=== PATIENT | male | born 1995 | race Caucasian/White ===

== ENCOUNTER 2018-03-18 09:55 | Outpatient (CLI) | payer OTHER ==
[2018-03-18 13:24] LABS: BASOPHILS % (AUTO) 0.5 %; EOSINOPHILS # (AUTO) 0.2 10^3/uL (0.0-0.7); EOSINOPHILS % (AUTO) 3.4 %; HGB - HEMOGLOBIN 15.8 g/dL (14.0-18.0); LYMPHOCYTES # (AUTO) 1.9 10^3/uL (1.5-3.5); LYMPHOCYTES % (AUTO) 37.8 %; MEAN CORPUSCULAR HEMOGLOBIN 33.6 pg (27.0-31.0); MEAN CORPUSCULAR HGB CONC 35.6 g/dL (32.0-36.0); MEAN CORPUSCULAR VOLUME 94.5 fL (80.0-94.0); MEAN PLATELET VOLUME 8.9 fL (7.4-11.4); MONOCYTES # (AUTO) 0.5 10^3/uL (0.0-1.0); MONOCYTES % (AUTO) 10.5 %; NEUTROPHILS # (AUTO) 2.4 10^3/uL (1.5-6.6); NEUTROPHILS % (AUTO) 47.8 %; PLT - PLATELET COUNT 214 10^3/uL (130-450); RED CELL DISTRIBUTION WIDTH 12.4 % (12.0-15.0); WHITE BLOOD COUNT 5.1 x10^3/uL (4.8-10.8)
[2018-03-18 13:41] LABS: HEMOGLOBIN A1C 0.46 g/dL; HEMOGLOBIN A1C % 4.6 % (4.6-6.2)
[2018-03-18 13:47] LABS: ALBUMIN 4.7 g/dL (3.2-5.5); ALBUMIN/GLOBULIN RATIO 1.7 (1.0-2.2); ALKALINE PHOSPHATASE 52 IU/L (42-121); ALT ALANINE AMINOTRANSFERASE 12 IU/L (10-60); AST ASPARTATE AMINOTRANSFERASE 16 IU/L (10-42); BILIRUBIN,TOTAL 2.2 mg/dL (0.2-1.0); BUN - BLOOD UREA NITROGEN 13 mg/dL (6-20); CALCIUM 9.5 mg/dL (8.5-10.3); CARBON DIOXIDE - CO2 26 mmol/L (21-32); CHLORIDE 105 mmol/L (101-111); CHOL/HDL RATIO 2.9 (<5.0); CHOLESTEROL 154 mg/dL; CREATININE 0.9 mg/dL (0.6-1.2); GFR - MDRD 107 (>89); GLUCOSE 85 mg/dL (70-100); HDL CHOLESTEROL 53 mg/dL; LDL CHOLESTEROL,CALCULATED 92 mg/dL; LDL/HDL RATIO 1.7 (<3.6); SODIUM 139 mmol/L (135-145); TOTAL PROTEIN 7.4 g/dL (6.7-8.2); VLDL CHOLESTEROL 9 mg/dL
== END 2018-03-18 09:56 | disposition home or self-care (01) ==
LOC: LAB.WCP 09:55
PROVIDERS: ATTEND Family Medicine
DX: Z00.00 Encounter for general adult medical examination without abnormal findings (principal)
CPT/HCPCS: 36415; 80050; 80061; 83036; 83721

== ENCOUNTER 2020-10-19 12:23 | Emergency (ER) | payer OTHER ==
[2020-10-19 13:05] LABS: BASOPHILS % (AUTO) 0.4 %; EOSINOPHILS % (AUTO) 0.4 %; HCT - HEMATOCRIT 52.8 % (42.0-52.0); LYMPHOCYTES % (AUTO) 7.1 %; MEAN CORPUSCULAR HEMOGLOBIN 33.6 pg (27.0-31.0); MEAN CORPUSCULAR VOLUME 93.5 fL (80.0-94.0); MEAN PLATELET VOLUME 9.7 fL (7.4-11.4); MONOCYTES % (AUTO) 9.8 %; NEUTROPHILS % (AUTO) 81.9 %; PLT - PLATELET COUNT 353 10^3/uL (130-450); RED BLOOD COUNT 5.65 10^6/uL (4.70-6.10); RED CELL DISTRIBUTION WIDTH 11.8 % (12.0-15.0); WHITE BLOOD COUNT 24.2 x10^3/uL (4.8-10.8)
[2020-10-19 13:09] LABS: SLIDE REVIEW? Indicated
[2020-10-19 13:10] LABS: ABNORMAL LYMPHS % (MANUAL) 0 %
[2020-10-19 13:17] LABS: ALBUMIN/GLOBULIN RATIO 1.8 (1.0-2.2); BILIRUBIN,TOTAL 1.3 mg/dL (0.2-1.0); CALCIUM 10.4 mg/dL (8.5-10.3); CREATININE 1.2 mg/dL (0.6-1.2); POTASSIUM 3.9 mmol/L (3.5-5.0); TOTAL PROTEIN 9.4 g/dL (6.7-8.2)
[2020-10-19 13:37] LABS: BAND NEUTROPHILS % (MANUAL) 16 %; EOSINOPHILS # (MANUAL) 0.2 10^3/uL (0-0.7); LYMPHOCYTES # (MANUAL) 1.7 10^3/uL (1.5-3.5); LYMPHOCYTES % (MANUAL) 7 %; MONOCYTES # (MANUAL) 1.5 10^3/uL (0.0-1.0); NEUTROPHILS # (MANUAL) 20.8 10^3/uL (1.5-6.6); PLATELET ESTIMATE, MANUAL NORMAL (130-450,000) (NORMAL); PLATELET MORPHOLOGY NORMAL APPEARANCE (NORMAL); RBC MORPHOLOGY (MULTIPLE) NORMAL APPEARANCE (NORMAL)
[2020-10-19 13:38] LABS: DIFFERENTIAL COMMENT MANUAL DIFFERENTIAL; WBC MORPHOLOGY (MULTIPLE) NORMAL APPEARANCE (NORMAL)
[2020-10-19] MEDS ORDERED: ONDANSETRON 4 MG/2 ML VIAL IVP STA (14:10)
[2020-10-19] MEDS ORDERED: KETOROLAC 30 MG/ML VIAL IVP STA (14:10)
[2020-10-19] MEDS ORDERED: SODIUM CHLORIDE 0.9% 1,000 ML IV STA ×2 (14:10)
--- NOTE | 2020-10-19 14:11 | ED Physician Documentation ---
PD HPI ABD PAIN - Stated complaint Stated Complaint: ABD PX/NAUSEA - Chief complaint Chief Complaint: Abd Pain - History obtained from History obtained from: Patient - Additional information Additional information: 24-year-old gentleman with history of ADD but otherwise healthy with no history of abdominal surgeries had relatively sudden onset epigastric pain associated with vomiting and diarrhea this morning around 10 AM. He wonders if it might have been from eating out last night. No sick contacts or recent travel. No fevers. Review of Systems Ten Systems: 10 systems reviewed and negative Constitutional: denies: Fever, Chills Nose: denies: Rhinorrhea / runny nose, Congestion Cardiac: denies: Chest pain / pressure, Palpitations Respiratory: denies: Dyspnea, Cough PD PAST MEDICAL HISTORY - Past Medical History Psych: Depression, Anxiety, ADD/ADHD - Past Surgical History Past Surgical History: Yes HEENT: Myringotomy (tubes) - Present Medications Home Medications: Ambulatory Orders Medication Instructions Recorded Confirmed Dextroamphetamine/Amphetamine 12.5 mg PO BID 01/01/14 10/19/20 [Adderall 12.5 mg Tablet] Ondansetron Odt [Zofran] 4 mg TL Q6H PRN #10 tablet 10/19/20 - Allergies Allergies/Adverse Reactions: Allergies Allergy/AdvReac Type Severity Reaction Status Date / Time No Known Drug Allergies Allergy Verified 10/19/20 12:38 - Social History Does the pt smoke?: No Smoking Status: Never smoker Does the pt drink ETOH?: No Does the pt have substance abuse?: No - Immunizations Immunizations are current?: Yes - POLST Patient has POLST: No PD ED PE NORMAL - Vitals Vital signs reviewed: Yes - General General: Alert and oriented X 3, No acute distress - HEENT HEENT: PERRL, EOMI - Neck Neck: Supple, no meningeal sign, No bony TTP - Cardiac Cardiac: RRR, No murmur - Respiratory Respiratory: No respiratory distress, Clear bilaterally - Abdomen Abdomen: Normal bowel sounds, Soft, Non tender - Back Back: No CVA TTP, No spinal TTP - Derm Derm: Normal color, Warm and dry - Extremities Extremities: No edema, No calf tenderness / cord - Neuro Neuro: Alert and oriented X 3, Normal speech Results - Vitals Vitals: Vital Signs - 24 hr 10/19/20 12:36 Temperature 36.6 C Heart Rate 113 H Respiratory 16 Rate Blood Pressure 116/70 O2 Saturation 100 Oxygen O2 Source Room air - Labs Labs: Laboratory Tests 10/19/20 10/19/20 10/19/20 13:00 13:00 14:47 WBC 24.2 H RBC 5.65 Hgb 19.0 H Hct 52.8 H MCV 93.5 MCH 33.6 H MCHC 36.0 RDW 11.8 L Plt Count 353 MPV 9.7 Neut # (Auto) Not Reportable Lymph # (Auto) Not Reportable [place] # (Auto) Not Reportable Eos # (Auto) Not Reportable Baso # (Auto) Not Reportable Absolute Nucleated RBC Not Reportable Total Counted 100 Band Neuts % (Manual) 16 H Abnorm Lymph % (Manual) 0 Nucleated RBC % Not Reportable Neutrophils # (Manual) 20.8 H Lymphocytes # (Manual) 1.7 Monocytes # (Manual) 1.5 H Eosinophils # (Manual) 0.2 Basophils # (Manual) 0.0 Differential Comment MANUAL DIFFERENTIAL Manual Slide Review Indicated WBC Morphology NORMAL APPEARANCE Platelet Estimate NORMAL (130-450,000) Platelet Morphology NORMAL APPEARANCE RBC Morph Micro Appear NORMAL APPEARANCE Sodium 139 Potassium 3.9 Chloride 101 Carbon Dioxide 25 Anion Gap 13.0 BUN 17 Creatinine 1.2 Estimated GFR (MDRD) 75 L Glucose 138 H Calcium 10.4 H Total Bilirubin 1.3 H AST 21 ALT 20 Alkaline Phosphatase 67 Total Protein 9.4 H Albumin 6.0 H Globulin 3.4 Albumin/Globulin Ratio 1.8 Lipase 22 Urine Color DARK YELLOW Urine Clarity SL. CLOUDY Urine pH 6.0 Ur Specific [place] >=1.030 H Urine Protein 100 H Urine Glucose (UA) NEGATIVE Urine Ketones NEGATIVE Urine Occult Blood NEGATIVE Urine Nitrite NEGATIVE Urine Bilirubin MODERATE H Urine Urobilinogen 0.2 (NORMAL) Ur Leukocyte Esterase NEGATIVE Urine RBC 0-5 Urine WBC 0-3 Ur Squamous Epith Cells RARE Squamous Urine Bacteria Moderate H Urine Casts 6-10 Hyaline Casts Urine Mucus Marked Strands Ur Microscopic Review INDICATED Urine Culture Comments INDICATED PD MEDICAL DECISION MAKING - ED course ED course: Note made that he has a significant leukocytosis on labs. His history at this point and his exam being completely nontender is really not consistent with a surgical process. Will reassess after some IV fluids noting that his labs do show hemoconcentration otherwise. When this was discussed with this patient he also notes that in the past he has had unexplained leukocytoses not indicative of serious illness. He was reexamined several times and was feeling better. He remained completely nontender and passed p.o. challenge. Very close watchful waiting was advised especially in light of his leukocytosis. Departure - Departure Disposition: 01 Home, Self Care Clinical Impression: Abdominal pain Qualifiers: Abdominal location: epigastric Qualified Code(s): R10.13 - Epigastric pain Vomiting Qualifiers: Vomiting type: unspecified Vomiting Intractability: non-intractable Nausea presence: with nausea Qualified Code(s): R11.2 - Nausea with vomiting, unspecified Diarrhea Qualifiers: Diarrhea type: unspecified type Qualified Code(s): R19.7 - Diarrhea, unspecified Condition: Good Record reviewed to determine appropriate education?: Yes Instructions: ED Abdominal Pain Appendx Poss Prescriptions: Ondansetron Odt [Zofran] 4 mg TL Q6H PRN #10 tablet PRN Reason: Nausea / Vomiting Comments: If it anytime you run a fever, or if you are not better by 7 AM tomorrow please return for reevaluation, also if worse please return. Follow-up with your do ctor regardless for repeat evaluation, next available appointment. Forms: Activity restrictions
[2020-10-19 15:10] LABS: GLUCOSE, URINE (UA) NEGATIVE (NEGATIVE); KETONES,URINE (UA) NEGATIVE (NEGATIVE); LEUKOCYTE ESTERASE, URINE NEGATIVE (NEGATIVE); NITRITE,URINE NEGATIVE (NEGATIVE); OCCULT BLOOD,URINE NEGATIVE (NEGATIVE); PROTEIN,URINE 100 mg/dL (NEGATIVE); UROBILINOGEN,URINE 0.2 (NORMAL) E.U./dL (NORMAL)
[2020-10-19 15:11] LABS: CLARITY,URINE SL. CLOUDY (CLEAR)
[2020-10-19 15:17] LABS: BILIRUBIN,URINE MODERATE (NEGATIVE); ICTOTEST,URINE POSITIVE
[2020-10-19 15:24] LABS: BACTERIA,URINE Moderate /HPF (None Seen); MUCUS,URINE Marked Strands; RBC,URINE 0-5 /HPF (0-5); SQUAMOUS EPITHELIAL CELL,UR RARE Squamous (<= Few); WBC,URINE 0-3 /HPF (0-3)
[2020-10-19 15:52] VITALS: BP 102/61
== END 2020-10-19 16:27 | disposition home or self-care (01) ==
LOC: ED 12:23
DX: R10.13 Epigastric pain (principal); R11.2 Nausea with vomiting, unspecified; R19.7 Diarrhea, unspecified; D72.829 Elevated white blood cell count, unspecified
CPT/HCPCS: 36415; 80053; 81001; 81003; 83690; 85025; 87086; 96374; 96375; 99283

== ENCOUNTER 2021-10-24 08:13 | Outpatient (CLI) | payer OTHER ==
[2021-10-24 12:30] LABS: RHEUMATOID FACTOR NEGATIVE (Negative)
[2021-10-25 14:32] LABS: HEPATITIS A AB TOTAL(IMMUNITY) REACTIVE (NON-REACTIVE); HEPATITIS B CORE AB TOTAL NON-REACTIVE (NON-REACTIVE); HEPATITIS B SURFACE ANTIGEN NON-REACTIVE (NON-REACTIVE); HEPATITIS C ANTIBODY NON-REACTIVE (NON-REACTIVE)
[2021-10-25 18:51] LABS: BASOPHILS % (AUTO) 0.6 %; EOSINOPHILS # (AUTO) 0.2 10^3/uL (0.0-0.7); EOSINOPHILS % (AUTO) 2.1 %; HCT - HEMATOCRIT 49.1 % (42.0-52.0); HGB - HEMOGLOBIN 17.5 g/dL (14.0-18.0); LYMPHOCYTES % (AUTO) 27.9 %; MEAN CORPUSCULAR HEMOGLOBIN 32.6 pg (27.0-31.0); MEAN CORPUSCULAR HGB CONC 35.6 g/dL (32.0-36.0); MEAN CORPUSCULAR VOLUME 91.4 fL (80.0-94.0); MEAN PLATELET VOLUME 10.7 fL (7.4-11.4); MONOCYTES # (AUTO) 0.8 10^3/uL (0.0-1.0); MONOCYTES % (AUTO) 11.1 %; NEUTROPHILS # (AUTO) 4.2 10^3/uL (1.5-6.6); NRBC ABSOLUTE COUNT (AUTO) 0.03 x10^3/uL; NUCLEATED RED BLOOD CELLS AUTO 0.4 /100WBC; PLT - PLATELET COUNT 270 10^3/uL (130-450); RED BLOOD COUNT 5.37 10^6/uL (4.70-6.10); RED CELL DISTRIBUTION WIDTH 11.6 % (12.0-15.0); WHITE BLOOD COUNT 7.2 x10^3/uL (4.8-10.8)
[2021-10-25 19:17] LABS: ALBUMIN/GLOBULIN RATIO 1.9 (1.0-2.2); BILIRUBIN,TOTAL 1.7 mg/dL (0.2-1.0); CALCIUM 9.5 mg/dL (8.5-10.3); CREATININE 1.2 mg/dL (0.6-1.2); TOTAL PROTEIN 7.6 g/dL (6.7-8.2)
[2021-10-25 19:23] LABS: THYROID STIMULATING HORMONE 0.93 uIU/mL (0.34-5.60)
[2021-10-25 19:26] LABS: POTASSIUM 6.7 mmol/L (3.5-5.0)
[2021-10-26 14:01] LABS: ANA SCREEN NEGATIVE (NEGATIVE)
[2021-10-26 19:26] LABS: CYCLIC CITRULL PEPTIDE CCP IGG <16 UNITS
== END 2021-10-24 08:14 | disposition home or self-care (01) ==
LOC: LAB.N 08:13
PROVIDERS: ATTEND Internal Medicine
DX: R16.1 Splenomegaly, not elsewhere classified (principal); R10.12 Left upper quadrant pain; R53.83 Other fatigue
CPT/HCPCS: 36415; 80053; 82150; 83010; 83690; 84443; 85025; 85651; 86038; 86140; 86200; 86430; 86704; 86708; 86803; 87340

== ENCOUNTER 2021-10-28 08:55 | Outpatient (CLI) | payer OTHER ==
[2021-10-28 14:00] LABS: CREATININE 1.1 mg/dL (0.6-1.2)
[2021-10-28 14:05] LABS: POTASSIUM 4.2 mmol/L (3.5-5.0)
== END 2021-10-28 08:56 | disposition home or self-care (01) ==
LOC: LAB.N 08:55
PROVIDERS: ATTEND Internal Medicine
DX: E87.5 Hyperkalemia (principal); R16.1 Splenomegaly, not elsewhere classified
CPT/HCPCS: 36415; 80048; 83010; 83615

== ENCOUNTER 2021-11-14 10:33 | Outpatient (CLI) | payer OTHER ==
[2021-11-14] MEDS ORDERED: IOVERSOL 320 100 ML VIAL IVP ONE ×2 (10:58→16:07)
--- NOTE | 2021-11-14 15:15 | CT Report ---
PROCEDURE: Abdomen/Pelvis W INDICATIONS: Splenomegaly and left upper quadrant pain CONTRAST: IV CONTRAST: Optiray 320 ml: 100 PO CONTRAST: Optiray 320 ml50 TECHNIQUE: After the administration of intravenous contrast, 5 mm thick sections acquired from the diaphragms to the symphysis. 5 mm thick coronal and sagittal reformats were acquired. For radiation dose reducti on, the following was used: automated exposure control, adjustment of mA and/or kV according to isa ent size. COMPARISON: None. FINDINGS: There is a multiseptated cystic lesion in the inferior spleen measuring at least 11 x 10.5 cm maximum axial dimension and 10 cm craniocaudal. There are calcifications in the wall of the lesion. The medi al and inferior wall of the lesion demonstrates crescentic soft tissue attenuation which may represen t a solid/cellular portion, although this is not definitive. Normal CT appearance of the liver, gallbladder, pancreas, kidneys, adrenal glands. No acute enteric a bnormality. No free fluid or free air. No threshold enlarged lymph node in the abdomen or pelvis. Oss eous structures unremarkable. IMPRESSION: Multiseptated cystic mass in the spleen measuring up to 11 cm. This may simply represent a multisepta adwoa cyst, though there does appear to be a possibly solid/cellular portion in the inferior/medial wal l of the lesion. MRI could be helpful for further evaluation. Consider surgical consultation. Reviewed by: Tyrone Correa MD on 11/14/2021 3:14 PM PDT Approved by: Tyrone Correa MD on 11/14/2021 3:14 PM PDT Station ID: [id number]
[2021-11-14] MEDS ORDERED: IOVERSOL 320 50 ML VIAL PO ONE (16:07)
== END 2021-11-14 10:34 | disposition home or self-care (01) ==
LOC: DI 10:33
PROVIDERS: ATTEND Internal Medicine
DX: R16.1 Splenomegaly, not elsewhere classified (principal); D72.829 Elevated white blood cell count, unspecified
CPT/HCPCS: 74177; Q9967

== ENCOUNTER 2022-08-02 00:03 | Emergency (ER) | payer OTHER ==
[2022-08-02] MEDS ORDERED: SODIUM CHLORIDE 0.9% 1,000 ML IV STA ×2 (00:17→02:20)
[2022-08-02 00:28] LABS: BASOPHILS % (AUTO) 0.3 %; EOSINOPHILS # (AUTO) 0.1 10^3/uL (0.0-0.7); EOSINOPHILS % (AUTO) 0.8 %; HCT - HEMATOCRIT 47.8 % (42.0-52.0); HGB - HEMOGLOBIN 16.8 g/dL (14.0-18.0); LYMPHOCYTES # (AUTO) 2.8 10^3/uL (1.5-3.5); LYMPHOCYTES % (AUTO) 25.3 %; MEAN CORPUSCULAR HEMOGLOBIN 32.7 pg (27.0-31.0); MEAN CORPUSCULAR HGB CONC 35.1 g/dL (32.0-36.0); MEAN CORPUSCULAR VOLUME 93.2 fL (80.0-94.0); MEAN PLATELET VOLUME 9.5 fL (7.4-11.4); MONOCYTES # (AUTO) 0.8 10^3/uL (0.0-1.0); MONOCYTES % (AUTO) 7.5 %; NEUTROPHILS # (AUTO) 7.3 10^3/uL (1.5-6.6); NEUTROPHILS % (AUTO) 65.7 %; PLT - PLATELET COUNT 296 10^3/uL (130-450); RED BLOOD COUNT 5.13 10^6/uL (4.70-6.10); RED CELL DISTRIBUTION WIDTH 11.5 % (12.0-15.0); WHITE BLOOD COUNT 11.1 x10^3/uL (4.8-10.8)
[2022-08-02 00:39] LABS: ALBUMIN/GLOBULIN RATIO 1.6 (1.0-2.2); BILIRUBIN,TOTAL 1.1 mg/dL (0.2-1.0); CALCIUM 9.5 mg/dL (8.5-10.3); CREATININE 1.1 mg/dL (0.6-1.2); POTASSIUM 3.4 mmol/L (3.5-5.0); TOTAL PROTEIN 8.2 g/dL (6.7-8.2)
[2022-08-02] MEDS ORDERED: ONDANSETRON 4 MG/2 ML VIAL IVP STA (00:41)
--- NOTE | 2022-08-02 00:56 | ED Physician Documentation ---
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 brought to ED by private vehicle; patient's uncle drove patient to ED. They were at a holiday office libertarian tonight. At approximately 10:30, uncle noticed patient appeared to be, and was acting, heavily intoxicated. Patient admits to drinking hard liquor tonight, unclear how much he drank. Patient denies drug use. No wi tnessed fall or injury although uncle was not at patient's side the entire time. Leaving the libertarian, it took two people to help patient into care, as he was too unsteady to walk. He then had n/v and was increasingly somnolent and difficult to arouse and thus uncle drove to ED instead of home, concerned about "alcohol poisoning" (per uncle). Review of Systems Unable to obtain: AMS, Intoxicated, Other (limited due to AMS, likely intoxication) GI: reports: Nausea, Vomiting. denies: Abdominal Pain Musculoskeletal: reports: Reviewed and negative Neurologic: denies: Confused, Headache, Head injury PD PAST MEDICAL HISTORY - Past Medical History Past Medical History: Yes Psych: Depression, Anxiety, ADD/ADHD - Past Surgical History Past Surgical History: Yes General: Splenectomy HEENT: Myringotomy (tubes) - Present Medications Home Medications: Ambulatory Orders Medication Instructions Recorded Confirmed Dextroamphetamine/Amphetamine 20 mg PO BID 01/01/14 03/07/22 [Adderall 12.5 mg Tablet] - Allergies Allergies/Adverse Reactions: Allergies Allergy/AdvReac Type Severity Reaction Status Date / Time No Known Drug Allergies Allergy Verified 08/02/22 00:16 - Social History Does the pt smoke?: No Smoking Status: Never smoker Does the pt drink ETOH?: No Does the pt have substance abuse?: No - Immunizations Immunizations are current?: Yes - POLST Patient has POLST: No PD ED PE NORMAL - Vitals Vital signs reviewed: Yes - General General: No acute distress, Well developed/nourished, Other (eyes closed except briefly when I repeatedly ask him to open them for exam (and even then, opens only one at a time and not fully but enough for exam). answers with one-word answers which are accurate (such as Ox3 questions), shrugs shoulders with other questions. repeatedly falls asleep during H+P) - HEENT HEENT: Atraumatic, PERRL, EOMI, Moist mucous membranes, Dentition benign - Neck Neck: Supple, no meningeal sign, No bony TTP - Cardiac Cardiac: RRR, No murmur - Respiratory Respiratory: No respiratory distress, Clear bilaterally - Abdomen Abdomen: Soft, Non tender PD ED PE EXPANDED - GCS Eye Opening: To Voice (often requires gentle tactile as well) Motor: Obeys Commands (obeys a few simple commands) Verbal: Oriented Total: 14 Results - Vitals Vitals: Oxygen O2 Source Room air - Labs Labs: Laboratory Tests 08/02/22 08/02/22 08/02/22 00:21 00:21 02:20 WBC 11.1 H RBC 5.13 Hgb 16.8 Hct 47.8 MCV 93.2 MCH 32.7 H MCHC 35.1 RDW 11.5 L Plt Count 296 MPV 9.5 Neut # (Auto) 7.3 H Lymph # (Auto) 2.8 Barry # (Auto) 0.8 Eos # (Auto) 0.1 Baso # (Auto) 0.0 Absolute Nucleated RBC 0.00 Nucleated RBC % 0.0 Sodium 140 Potassium 3.4 L Chloride 103 Carbon Dioxide 24 Anion Gap 13.0 BUN 16 Creatinine 1.1 Estimated GFR (MDRD) 82 L Glucose 126 H Calcium 9.5 Total Bilirubin 1.1 H AST 23 ALT 24 Alkaline Phosphatase 66 Total Protein 8.2 Albumin 5.0 Globulin 3.2 Albumin/Globulin Ratio 1.6 Lipase 26 Urine Color Urine Clarity Urine pH Ur Specific [place] Urine Protein Urine Glucose (UA) Urine Ketones Urine Occult Blood Urine Nitrite Urine Bilirubin Urine Urobilinogen Ur Leukocyte Esterase Ur Microscopic Review Urine Culture Comments Ethyl Alcohol 112.0 75.3 08/02/22 02:24 WBC RBC Hgb Hct MCV MCH MCHC RDW Plt Count MPV Neut # (Auto) Lymph # (Auto) Barry # (Auto) Eos # (Auto) Baso # (Auto) Absolute Nucleated RBC Nucleated RBC % Sodium Potassium Chloride Carbon Dioxide Anion Gap BUN Creatinine Estimated GFR (MDRD) Glucose Calcium Total Bilirubin AST ALT Alkaline Phosphatase Total Protein Albumin Globulin Albumin/Globulin Ratio Lipase Urine Color YELLOW Urine Clarity CLEAR Urine pH 6.0 Ur Specific [place] 1.025 Urine Protein NEGATIVE Urine Glucose (UA) NEGATIVE Urine Ketones NEGATIVE Urine Occult Blood NEGATIVE Urine Nitrite NEGATIVE Urine Bilirubin NEGATIVE Urine Urobilinogen 0.2 (NORMAL) Ur Leukocyte Esterase NEGATIVE Ur Microscopic Review NOT INDICATED Urine Culture Comments NOT INDICATED Ethyl Alcohol - Rads (name of study) CT head Radiology: Prelim report reviewed, EMP read indepedently, See rad report PD Medical Decision Making - ED course Complexity details: reviewed results, re-evaluated patient, considered differential, d/w patient, d/w family ED course: given IV NS x 2 liters and 4mg IV zofran during ED stay. brought in for signs and symptoms c/w ethanol intoxication. His uncle says patient is neither a heavy nor regular drinker which patient confirms when I ask him, although he answers by nodding his head; as with most of his answers to my questions, it is unclear if he is sincerely answering question versus wanting to be left alone and/or going back to sleep. His serum ethanol level is .112, and I am concerned that his exam is not proportionate to this result; while .112 is high, it would be atypical (though certainly possible) to have this presentation and exam even for someone who does not even drink alcohol at all. In trying to determine best course of action after labs had resulted, I reexamined patient; his level of alertness and interaction has not appreciably changed. He does open both eyes now if repeatedly prompted, and only briefly. I ask him if he can sit up and he shakes his head "no". I ask why he cannot sit up and he shrugs his shoulders; at this point, his eyes are closed and he appears to be going back to sleep. I discussed options with patient's uncle (and patient, although, again, he is not awake/alert enough to confidently participate in the medical decision making process at this time). Options would include taking patient home now and observing at home; given he had several episodes of emesis which persisted until IV zofran was given, the concern would be recurrence of emesis and risk of aspiration if he is still this somnolent. Uncle agrees this is not a good option. Second option would be observation in ED, likely for a few hours. The third option is my recommendation, which is CT head to ensure there is no finding that would explain his AMS (such as ICH), given that an unobserved loss of balance and fall is reasonable possibility in this scenario. Also would repeat ETOH level (could have been on the way up when first draw was taken tonight). Uncle agrees and patient is woken up, I explained this plan with him and he says "yeah" when I ask if we can go forward with these tests (CTH and repeat blood ETOH level). no concerning findings on CTH. Repeat alcohol level has decreased to .07 On reexam, he is sleeping but awakens much more easily. He is hypokinetic but answers questions with short but complete sentences now. He denies injury that he recalls, denies using drugs/illicit substances. He says he feels well and is comfortable with d/c home. At this point, the most likely explanation is that he has [id number] tolerance for alcohol and this, combined with being tired after being up all day, perhaps led to his somnolence. He was able to sit up and eventually stand and ambulate prior to d/c. Departure - Departure Disposition: 01 Home, Self Care Clinical Impression: Alcohol intoxication Condition: Good Instructions: ED Alcohol Intoxication Discharge Date/Time: 08/02/22 04:09
[2022-08-02 02:30] LABS: BILIRUBIN,URINE NEGATIVE (NEGATIVE); GLUCOSE, URINE (UA) NEGATIVE (NEGATIVE); KETONES,URINE (UA) NEGATIVE (NEGATIVE); LEUKOCYTE ESTERASE, URINE NEGATIVE (NEGATIVE); NITRITE,URINE NEGATIVE (NEGATIVE); OCCULT BLOOD,URINE NEGATIVE (NEGATIVE); PROTEIN,URINE NEGATIVE (NEGATIVE); UROBILINOGEN,URINE 0.2 (NORMAL) E.U./dL (NORMAL)
[2022-08-02 02:35] LABS: CLARITY,URINE CLEAR (CLEAR)
[2022-08-02] MEDS ORDERED: ONDANSETRON ODT 4 MG Prepack 2 TL STA (04:00)
[2022-08-02 04:19] VITALS: BP 110/64
--- NOTE | 2022-08-02 09:30 | CT Report ---
PROCEDURE: HEAD WO INDICATIONS: AMS TECHNIQUE: Noncontrast 4.5 mm thick angled axial sections acquired from the foramen magnum to the vertex. For r adiation dose reduction, the following was used: automated exposure control, adjustment of mA and/or kV according to patient size. COMPARISON: None. FINDINGS: Image quality: Excellent CSF spaces: Basal cisterns are patent. Lateral ventricles are symmetric. Volume: Generally maintained Brain: No intracranial hemorrhage. Flynn-white differentiation is grossly maintained. Craniofacial structures: No displaced fracture. Sinuses are clear. Orbits are intact. IMPRESSION: No acute intracranial abnormality. Agree with preliminary report Reviewed by: Aldo Noble MD on 08/02/2022 8:29 AM [facility] Approved by: Aldo Noble MD on 08/02/2022 8:29 AM [facility] Station ID: [id number]
== END 2022-08-02 04:09 | disposition home or self-care (01) ==
LOC: ED 00:03
DX: F10.129 Alcohol abuse with intoxication, unspecified (principal); Y90.5 Blood alcohol level of 100-119 mg/100 ml
CPT/HCPCS: 36415; 80053; 80320; 81001; 81003; 83690; 85025; 87086; 96374; 99283

== ENCOUNTER 2022-10-13 15:27 | Emergency (ER) | payer SELFPAY ==
[2022-10-13 16:51] LABS: BASOPHILS % (AUTO) 0.5 %; EOSINOPHILS # (AUTO) 0.1 10^3/uL (0.0-0.7); HCT - HEMATOCRIT 50.3 % (42.0-52.0); HGB - HEMOGLOBIN 17.9 g/dL (14.0-18.0); LYMPHOCYTES % (AUTO) 25.4 %; MEAN CORPUSCULAR HEMOGLOBIN 32.7 pg (27.0-31.0); MEAN CORPUSCULAR HGB CONC 35.6 g/dL (32.0-36.0); MEAN CORPUSCULAR VOLUME 91.8 fL (80.0-94.0); MEAN PLATELET VOLUME 9.9 fL (7.4-11.4); MONOCYTES # (AUTO) 0.7 10^3/uL (0.0-1.0); MONOCYTES % (AUTO) 8.5 %; NEUTROPHILS % (AUTO) 64.2 %; PLT - PLATELET COUNT 260 10^3/uL (130-450); RED BLOOD COUNT 5.48 10^6/uL (4.70-6.10); RED CELL DISTRIBUTION WIDTH 11.6 % (12.0-15.0); WHITE BLOOD COUNT 7.7 x10^3/uL (4.8-10.8)
[2022-10-13 17:03] LABS: ALBUMIN 5.1 g/dL (3.2-5.5); ALBUMIN/GLOBULIN RATIO 1.5 (1.0-2.2); BILIRUBIN,TOTAL 2.2 mg/dL (0.2-1.0); CALCIUM 9.8 mg/dL (8.5-10.3); CREATININE 1.1 mg/dL (0.6-1.2); TOTAL PROTEIN 8.5 g/dL (6.7-8.2)
[2022-10-13] MEDS ORDERED: SODIUM CHLORIDE 0.9% 1,000 ML IV STA (18:46)
--- NOTE | 2022-10-13 19:06 | ED Physician Documentation ---
History of Present Illness - Stated complaint Stated Complaint: FEVER, FOGGY - Chief complaint Chief Complaint: Abd Pain - History obtained from History obtained from: Patient, Family - History of Present Illness Timing: Today Pain level max: 0 Pain level now: 0 - Additonal information Additional information: Patient is a 26-year-old male who presents to the emergency department with nausea and vomiting and diarrhea. This has been ongoing for the past three days. The nausea and vomiting have resolved but is still having a small amount of diarrhea. He feels lightheaded, and "foggy". He states that he has not been eating and drinking much and is concerned that he is dehydrated. No recent antibiotics or travel. No camping. Nothing makes it better or worse. Review of Systems Constitutional: denies: Fever, Chills Skin: denies: Rash Musculoskeletal: denies: Neck pain, Back pain Neurologic: denies: Focal weakness, Numbness, Seizure, Headache, Head injury PD PAST MEDICAL HISTORY - Past Medical History Past Medical History: Yes Psych: Depression, Anxiety, ADD/ADHD - Past Surgical History Past Surgical History: Yes General: Splenectomy HEENT: Myringotomy (tubes) - Present Medications Home Medications: Ambulatory Orders Medication Instructions Recorded Confirmed Dextroamphetamine/Amphetamine 20 mg PO BID 01/01/14 03/07/22 [Adderall 12.5 mg Tablet] - Allergies Allergies/Adverse Reactions: Allergies Allergy/AdvReac Type Severity Reaction Status Date / Time No Known Drug Allergies Allergy Verified 10/13/22 16:07 - Social History Does the pt smoke?: No Smoking Status: Never smoker Does the pt drink ETOH?: No Does the pt have substance abuse?: No - Immunizations Immunizations are current?: Yes - POLST Patient has POLST: No PD ED PE NORMAL - Vitals Vital signs reviewed: Yes - General General: Alert and oriented X 3, No acute distress, Well developed/nourished - HEENT HEENT: PERRL, Ears normal, Pharynx benign, Other (dry lips and tongue) - Neck Neck: Supple, no meningeal sign - Cardiac Cardiac: RRR, Strong equal pulses - Respiratory Respiratory: No respiratory distress, Clear bilaterally - Abdomen Abdomen: Soft, Non tender, Non distended - Back Back: No CVA TTP, No spinal TTP - Derm Derm: Warm and dry, No rash - Extremities Extremities: No edema - Neuro Neuro: Alert and oriented X 3 - Psych Psych: Normal mood, Normal affect Results - Vitals Vitals: Vital Signs - 24 hr 10/13/22 10/13/22 10/13/22 16:01 18:35 18:38 Temperature 37.0 C Heart Rate 95 90 Respiratory 18 20 Rate Blood Pressure 133/73 H 127/67 O2 Saturation 99 99 10/13/22 10/13/22 10/13/22 20:17 20:36 20:48 Temperature Heart Rate 75 85 85 Respiratory 12 11 L 19 Rate Blood Pressure 117/67 130/72 107/79 O2 Saturation 99 99 99 Oxygen O2 Source Room air - Labs Labs: Laboratory Tests 10/13/22 10/13/22 10/13/22 16:46 16:46 19:57 WBC 7.7 RBC 5.48 Hgb 17.9 Hct 50.3 MCV 91.8 MCH 32.7 H MCHC 35.6 RDW 11.6 L Plt Count 260 MPV 9.9 Neut # (Auto) 5.0 Lymph # (Auto) 2.0 [place] # (Auto) 0.7 Eos # (Auto) 0.1 Baso # (Auto) 0.0 Absolute Nucleated RBC 0.00 Nucleated RBC % 0.0 Sodium 133 L Potassium 4.0 Chloride 98 L Carbon Dioxide 18 L Anion Gap 17.0 H BUN 16 Creatinine 1.1 Estimated GFR (MDRD) 82 L Glucose 67 L Calcium 9.8 Total Bilirubin 2.2 H AST 23 ALT 23 Alkaline Phosphatase 85 Total Protein 8.5 H Albumin 5.1 Globulin 3.4 Albumin/Globulin Ratio 1.5 Lipase 24 Urine Color YELLOW Urine Clarity CLEAR Urine pH 5.5 Ur Specific [place] >=1.030 H Urine Protein NEGATIVE Urine Glucose (UA) NEGATIVE Urine Ketones >=80 H Urine Occult Blood NEGATIVE Urine Nitrite NEGATIVE Urine Bilirubin NEGATIVE Urine Urobilinogen 0.2 (NORMAL) Ur Leukocyte Esterase NEGATIVE Ur Microscopic Review NOT INDICATED Urine Culture Comments NOT INDICATED PD Medical Decision Making - ED course Complexity details: reviewed results, re-evaluated patient, considered differential, d/w patient, d/w family ED course: CBC is unremarkable. ER abdominal panel shows a mild hyponatremia, mild metabolic acidosis. Mildly elevated bilirubin. Patient received IV fluids here. His urinalysis was consistent with dehydration as well. He feels much better after IV fluids and is eating and drinking without difficulty. Appears to be a viral gastroenteritis. We will have him follow up with his doctor for further care.Patient counseled regarding signs and symptoms for which I believe an urgent reevaluation would be necessary. Patient with good understanding of and agreement to plan and is comfortable going home at this time. Departure - Departure Disposition: 01 Home, Self Care Clinical Impression: Viral gastroenteritis Condition: Good Instructions: ED Gastroenteritis Viral Follow-Up: Kaiden Johnston MD [Primary Care Provider] - Within 1 week Comments: Drink plenty of fluids. Follow-up with your doctor for further care. Make sure you are continuing to eat and drink at home. You were dehydrated today. This appears to be a viral illness and should improve over the next 2 to 3 days. Forms: Activity restrictions Discharge Date/Time: 10/13/22 20:50
[2022-10-13 20:16] LABS: GLUCOSE, URINE (UA) NEGATIVE (NEGATIVE); KETONES,URINE (UA) >=80 mg/dL (NEGATIVE); LEUKOCYTE ESTERASE, URINE NEGATIVE (NEGATIVE); NITRITE,URINE NEGATIVE (NEGATIVE); OCCULT BLOOD,URINE NEGATIVE (NEGATIVE); PH,URINE 5.5 PH (5.0-7.5); PROTEIN,URINE NEGATIVE (NEGATIVE); UROBILINOGEN,URINE 0.2 (NORMAL) E.U./dL (NORMAL)
[2022-10-13 20:26] LABS: BILIRUBIN,URINE NEGATIVE (NEGATIVE); CLARITY,URINE CLEAR (CLEAR); ICTOTEST,URINE NEGATIVE
[2022-10-13 20:49] VITALS: BP 107/79
== END 2022-10-13 20:50 | disposition home or self-care (01) ==
LOC: ED 15:27
DX: A08.4 Viral intestinal infection, unspecified (principal); E86.0 Dehydration; E87.1 Hypo-osmolality and hyponatremia
CPT/HCPCS: 36415; 80053; 81001; 81003; 83690; 85025; 87086; 96360; 96361; 99284